=== PATIENT | female | born 1990 | race Caucasian/White ===

== ENCOUNTER 2017-12-13 05:59 | Emergency (ER) | payer BC, OTHER ==
[~2017-12-13] VITALS: Ht 170.2 cm; Wt 54.4 kg
--- NOTE | ~2017-12-13 | EKG ---
[place] [address] [facility] [place] [address] ELECTROCARDIOGRAM REPORT Name: CARLY AGUILAR Room #: [facility]P [facility] [id number] Admission: 12/13/17 Attend Phys: Discharge: 12/13/17 Date of : [birth year] Report #: [id number] THIS REPORT FOR: //name// [facility] ED Test Date: 2017-12-13 Test Time: 06:09:36 Pat Name: CARLY AGUILAR Department: Room: Gender: F [employer]: MARY GRACE : 1990 Requested By: Garcia Molina Order Number: [id number] MD: Ed Shah Measurements Intervals [place] Rate: 123 P: 35 OK: 91 QRS: 29 QRSD: 90 T: -20 QT: 309 QTc: 442 Interpretive Statements Sinus tachycardia RSR' in V1 or V2, right VCD or RVH Probable anteroseptal infarct, old Baseline wander in lead(s) III No previous ECG available for comparison Electronically Signed On 12-13-2017 17:13:22 CDT by Ed Shah [email or web address] <ELECTRONICALLY SIGNED> By: Ed Shah MD 12/13/17 [id number] Ed Shah MD /EPI
[2017-12-13 06:22] LABS: URINE BILIRUBIN NEGATIVE (Negative); URINE BLOOD 3+ (Negative); URINE CLARITY SL CLOUDY; URINE COLOR YELLOW; URINE GLUCOSE-RANDOM* NEGATIVE (Negative); URINE KETONES TRACE (Negative); URINE NITRITE-REFLEX NEGATIVE (Negative); URINE PROTEIN (DIPSTICK) NEGATIVE (Negative); URINE SPECIFIC GRAVITY >= 1.030 (1.005-1.035); URINE UROBILINOGEN 0.2 E.U./dl (0.2-1.0)
[2017-12-13 06:24] LABS: URINE LEUKOCYTES-REFLEX TRACE (Negative)
[2017-12-13 06:31] LABS: CASTS None Seen /LPF (None Seen); SQUAMOUS >10 Many /LPF (0-3)
[2017-12-13 06:32] LABS: BACTERIA-REFLEX 1-9 Few /HPF (None Seen); CRYSTALS None Seen /LPF (None Seen); MUCUS >6 Heavy strn/LPF (None Seen); URINE RBC 0-2 Rare /HPF (0-2)
[2017-12-13 06:33] LABS: ABSOLUTE NEUTROPHILS 9.3 thou/uL (1.4-8.2); BASOPHILS 0.5 % (0.0-2.0); EOSINOPHILS 0.5 % (0.0-3.0); HEMATOCRIT 40.1 % (37.0-47.0); LYMPHOCYTES 6.1 % (24.0-44.0); MCH 31.2 pg (26.0-34.0); MCV 89.3 fL (80.0-100.0); MONOCYTES 4.9 % (1.0-8.0); PLATELET COUNT 214 thou/uL (150-400); RBC 4.49 mil/uL (4.20-5.00); RDW 13.7 % (10.5-14.5); WBC 10.6 thou/uL (4.0-11.0)
[2017-12-13 06:33] LABS: AMP/METHAMP Negative (Negative); BARBITURATES Negative (Negative); BENZODIAZEPINES Negative (Negative); COCAINE POSITIVE (Negative); METHADONE Negative (Negative); OPIATES Negative (Negative); PCP Negative (Negative)
[2017-12-13 06:43] LABS: APTT 24.6 Seconds (24.5-32.8); PROTIME 10.3 Seconds (9.3-11.4)
[2017-12-13 06:44] LABS: ANION GAP 12 mmol/L (7-16); BUN 13 mg/dL (7-18); CALCIUM 9.4 mg/dL (8.5-10.1); CHLORIDE 102 mmol/L (98-107); CO2 23 mmol/L (21-32); CREATININE 0.7 mg/dL (0.6-1.0); GLUCOSE 119 mg/dL (74-106); POTASSIUM 3.5 mmol/L (3.5-5.1); SODIUM 137 mmol/L (136-145)
[2017-12-13 06:53] LABS: ALBUMIN 3.9 g/dL (3.4-5.0); LIPASE 121 U/L (73-393); MAGNESIUM 1.6 mg/dL (1.8-2.4); SGOT 20 U/L (15-37); SGPT 21 U/L (30-65); TOTAL BILIRUBIN 0.8 mg/dL (<0.1-1.0); TOTAL PROTEIN 7.9 g/dL (6.4-8.2); TROPONIN-I <0.06 ng/mL (<0.06)
[2017-12-13] MEDS ORDERED: ZOFRAN ODT8 MG PO (07:45)
[2017-12-13] MEDS ORDERED: TRAMADOL 50 MG50 MG PO (07:45)
[2017-12-13] MEDS ORDERED: KEFLEX500 M1 PO (07:45)
[2017-12-13 08:22] VITALS: BP 105/60
== END 2017-12-13 08:23 | disposition home or self-care (01) ==
LOC: ER 05:59
PROVIDERS: Emergency Medicine
DX: N39.0 Urinary tract infection, site not specified (principal); R11.2 Nausea with vomiting, unspecified; F14.10 Cocaine abuse, uncomplicated; F12.10 Cannabis abuse, uncomplicated